=== PATIENT | female | born 2000 | race Caucasian/White ===

== ENCOUNTER 2024-11-10 21:21 | Emergency (ER) | payer SELFPAY ==
[~2024-11-10] VITALS: Ht 170.2 cm; Wt 75.0 kg
[2024-11-10 21:22] VITALS: O2SAT 100
[2024-11-10 21:35] VITALS: BP 113/77; PULSE 120; RESP 20; TEMP 36.9; O2SAT 97
== END 2024-11-10 22:21 | disposition left against medical advice (07) ==
LOC: ER 21:21
DX: M79.601 Pain in right arm (principal); Z53.21 Procedure and treatment not carried out due to patient leaving prior to being seen by health care provider